=== PATIENT | male | born 1950 | race Caucasian/White ===

== ENCOUNTER → 2017-05-14 | Outpatient (CLI) | payer OTHER ==
[~2017-05-14] VITALS: Ht 180.3 cm; Wt 89.8 kg
[~2017-05-14] MED LIST: MAGOX 400400 MG PO; NOHOMEMEDICATIONS; VITAMIN B-1100 M2 PO
[2017-05-14 09:18] VITALS: BP 145/98
== END ==
LOC: SEN 08:35
DX: L98.8 Other specified disorders of the skin and subcutaneous tissue (principal)